=== PATIENT | female | born 1995 | race Caucasian/White ===

== ENCOUNTER 2021-02-12 14:14 | Inpatient (IN) | payer OTHER ==
[~2021-02-12] VITALS: Ht 165.1 cm; Wt 92.2 kg
[2021-02-12 14:44] VITALS: BP 140/84
[2021-02-12 16:05] VITALS: BP 117/81
[2021-02-12] MEDS ORDERED: TRANEXAMIC ACID INJection 1,000 MG in NS 100 ML IV PRN (16:10)
[2021-02-12] MEDS ORDERED: METHYLERGONOVINE MALEATE 0.2 MG/ML VIAL (J2210) IM PRN (16:10)
[2021-02-12] MEDS ORDERED: OXYTOCIN DRIP 30 UNITS in IV 1 EA IV PRN (16:10)
--- NOTE | 2021-02-12 16:26 | HPEPDOC ---
Obstetrical History & Physical General Date of Admission History of Present Illness 25 yo at 40+5 weeks gestation by LMP of [id number] c/w 10+1 week US present to L&D due to having a non reactive NST in the clinic. Nataliya reported not feeling the baby move very much. She was placed on the monitor and the NST was non reactive. She was sent to L&D. She reports intermittent contractions but nothing severe. She denies any vaginal bleeding or leakage of fluid. Chief Complaint: Induction of labor Information Provided By: Patient Age: 25 : 1 Term: 0 Pre-term: 0 Abortions: 0 Livin Care Care: Good Care Dating Final EDC: Feb 12, 2021 Final EDC for Daily Update: Feb 12, 2021 Final EDC by: LMP (LMP of [id number] c/w 10+1 week US set ED of [id number]) Antepartum Course Diagnos(e)s Transfer of care at 35 weeks ---> records available Past Medical History Past Obstetrical History : Past Obstetrical History: Primgravida DOCUMENTATION ANALYST History: No pertinent history Past Medical History Medical History Denies Surgical History: Appendectomy Family History Significant Family History: No pertinent family hx Social History Marital Status: Family situation: Spouse/partner home Psychosocial History: No pertinent psych hx * Smoker: non-smoker Alcohol: Denies Drugs: denies Imunizations Tdap status: current Influenza Status: current Physical Examination Physical Examination GENERAL: Alert and oriented times three. ABDOMEN: Gravid and non-tender to touch. FETUS: Is vertex (VTX) by sterile vaginal examination (SVE) EXTREMITIES: No edema. Bedside TAUS ( anatomy not assessed): Viable SIUP in cephalic presentation. +FCA measured at 125 bpm. +gross movement. JAYANT 9.8 cm. Vital Signs/I&O Vital Signs Date Time Temp Pulse Resp B/P (MAP) Pulse Ox O2 Delivery O2 Flow Rate FiO2 02/12/21 14:44 97.3 120 16 140/84 (102) Room Air Pertinent Laboratoy Data Blood Type: O+ RBC Antibody Screen: Negative HIV: Negative Hepatitis B: Negative Hepatitis C: Unknown Rapid Plasma Reagin: Nonreactive Rubella: Immune Varicella: Immune Chlamydia/Gonorrhea: Negative Group B Streptococcus: Negative Cystic Fibrosis: Negative Glucose Tolerance Test: 116 Anatomy Ultrasound Placenta Location: Anterior Normal Anatomy: Yes Placenta Previa: No Vaginal Examination Dilation: 2cm Effacement: 50% Station: -3 Cervical Consistency: Medium Cervical Position: Middle Presentation: Cephalic presentation Position: Vertex (occiput) Assessment Heart Rate (FHR): 125 Variability: Moderate Accelerations: Positive Decelerations: None Tocometer Contractions: Yes Frequency: irregular Assessment/Plan Assessment 25 yo at 40+5 weeks gestation presents to L&D for an IOL due to a non reactive NST in the office. Plan Admit for IOL. Labs per L&D protocol. Apply IV fluids. GBS negative. Regular diet. Discussed cook balloon, cytotec, and pitocin. Patient candidate for IV analgesia and/or epidural analgesia as desired. Anticipate . Labor and Delivery Counseling Vaginal / Operative vaginal delivery / C section counseling We will deliver your baby through the vagina with possible assistance of forceps or vacuum device if needed for maternal or indications. Forceps and vacuum are devices that can assist with vaginal delivery when normal pushing efforts cannot achieve delivery on their own or when delivery is needed in an emergency for baby's well-being. Medications may be required to induce or augment (help) your labor in order to achieve a vaginal delivery. An episiotomy may be required to help your baby to delivery vaginally. You may also require repair of any lacerations or tears of your vagina or vulva that are caused by delivery. In some cases, emergencies can occur that require an emergency section delivery so quickly that there may not be enough time to stop and complete consent forms for section. Understand that if this occurs, your providers will discuss the need for a section with you before they proceed with surgery. section is the delivery of your baby through an incision in your abdomen. In some situations, section may be safer to mom and baby than continuing labor and is only performed when clinically in dicated. Risks of vaginal delivery include but are not limited to: Bleeding, infection, injury to the vagina, pelvic structures, injury to baby, damage to the uterus, reactions to anesthesia, uterine rupture, risk of hysterectomy for life threatening bleeding, or . Medications used to induce or augment labor may increase your risk for infection, uterine tachysystole, uterine rupture, heart rate abnormalities, need for emergency delivery or possible hysterectomy, and hemorrhage. Additional risks for use of forceps and vacuum include: increased risk of perineal and vaginal lacerations, risk of urinary or bowel incontinence, increased risk of injury to baby with bruising, scratches, hematomas on the head, or intracranial bleeding. Ms. Terrazas appears to understand these risks and elects to proceed with IOL today. She also consents to a blood transfusion if necessary. All patient and questions answered. Lawrence Lamb DO, LAWRENCE ESPINAL. Feb 12, 2021 16:26
[2021-02-12 17:35] LABS: HEMATOCRIT 35.3 % (36.0-47.0); HEMOGLOBIN 12.1 g/dl (12.0-15.5); MEAN CORPUSCULAR HGB CONC 34.3 g/dl (32.0-36.5); MEAN CORPUSCULAR VOLUME 87.6 fl (80.0-96.0); PLATELET COUNT, AUTOMATED 244 10^3/uL (150-450); RED BLOOD COUNT 4.03 10^6/uL (4.00-5.40); WHITE BLOOD COUNT 14.8 10^3/uL (4.0-10.0)
[2021-02-12 18:28] VITALS: BP 132/80
[2021-02-12] MEDS ORDERED: TUMS0.15 PO (19:00)
[2021-02-12] MEDS ORDERED: PRENTAB9 PO (19:00)
[2021-02-12] MEDS ORDERED: HOME MED LIST COMPLETE! XX SCH (19:10)
--- NOTE | 2021-02-12 19:47 | IPNPDOC ---
Text Note Date of Service The patient was seen on 02/12/21. NOTE Chaperoned by RN Cervix: 50/-3, posterior. Cook balloon placed with 60ml saline intrauterine. FHR has been Cat I. Contractions intermittent. Will add concurrent low dose pitocin. All patient questions answered. Adonis VS,Torsten, I+O VS, Torsten, I+O Laboratory Tests 02/12/21 16:10 Vital Signs Date Time Temp Pulse Resp B/P (MAP) Pulse Ox O2 Delivery O2 Flow Rate FiO2 02/12/21 18:28 81 16 132/80 (97) 02/12/21 14:44 97.3 Room Air DARLIN CARTER DO Feb 12, 2021 19:47
[2021-02-12 19:48] VITALS: BP 140/87
[2021-02-12 20:00] LABS: TOTAL PROTEIN,RANDOM URINE 9.2 MG/DL (0.0-12.0)
[2021-02-12 21:24] VITALS: BP 140/91
[2021-02-12] MEDS ORDERED: PROMETHAZINE INJ 25 MG/ML VIAL (J2550) IV PRN (22:35)
[2021-02-12] MEDS ORDERED: BUTORPHANOL 2 MG/ML INJ (J0595) IV PRN (22:35)
[2021-02-12 23:00] VITALS: BP 136/71
[2021-02-12] MEDS ORDERED: OXYTOCIN DRIP 30 UNITS in IV 1 EA IV SCH (23:40)
[2021-02-13] VITALS (53 sets, daily range): BP systolic 108–162; BP diastolic 57–93
[2021-02-13] MEDS: LR 1,000 ML IV SCH ×4 (00:32→14:26)
[2021-02-13] MEDS: ONDANSETRON 4MG/2ML VIAL IV PRN ×2 (07:20→14:53)
--- NOTE | 2021-02-13 08:21 | IPNPDOC ---
Obstetrical Progress Note Date of Service Feb 13, 2021 Subjective Pt states feeling better with walking and moving, states back and hip pain with contractions. Objective Vital Signs Date Time Temp Pulse Resp B/P (MAP) Pulse Ox O2 Delivery O2 Flow Rate FiO2 02/13/21 06:39 98.9 113 18 132/82 (99) 02/12/21 14:44 Room Air Assessment Heart Rate (FHR): 125 Variability: Moderate Accelerations: Positive Decelerations: None Heart Rate Tracing: Category I Tocometer Contractions: Yes Frequency: regular (q2-3 min on 10mu pitocin) Duration: greater than 60 seconds Strength: palpated as moderate, resting tone palp/soft Assessment and Plan Age: 25 : 1 EGA at Admission: 40 (+5) Weeks & Days 40+6 Status: Reassuring Group B Streptococcus: Negative Anticipate: Vaginal Delivery Additional Comments LR @125 mL/hr, continuous efm x2, continue pitocin induction and titrate per protocol, monitor for change in or maternal status, encourage maternal movement and counter pressure for low back pain, evaluate for dilation as indicated and consider AROM with next exam, anticipate vaginal delivery. CONNOR DANG CNM Feb 13, 2021 08:20
[2021-02-13] MEDS ORDERED: ePHEDrine SULFATE 25 MG/5 ML(5MG/ML) SYRINGE IV PRN (10:22)
[2021-02-13] MEDS ORDERED: EPIDURAL COMMENT XX SCH (10:22)
[2021-02-13] MEDS ORDERED: EPIDURAL/PCA KEYS XX PRN (10:22)
[2021-02-13] MEDS ORDERED: ONDANSETRON 4MG/2ML VIAL IV PRN (10:22)
[2021-02-13] MEDS ORDERED: NALOXONE INJ 0.4MG/1ML VIAL (J2310 PER 1MG) IV PRN (10:22)
[2021-02-13] MEDS ORDERED: diphenhydrAMINE 50MG/ML VIAL (J1200) IV PRN (10:22)
[2021-02-13] MEDS ORDERED: LACTATED RINGER'S 1000 ML IV PRN (10:22)
[2021-02-13] MEDS ORDERED: REFRIGERATOR IV KEYS XX PRN (10:22)
[2021-02-13] MEDS ORDERED: FENTANYL 2MCG/ML ROPIVACAINE 0.2% IN 0.9% NACL 100ML IVBAG As Ordered ONE (10:24)
[2021-02-13] MEDS: FENTANYL/ROPIVACAINE/NACL BAG 100 ML EPIDURAL SCH ×2 (11:02→16:40)
--- NOTE | 2021-02-13 13:47 | IPNPDOC ---
Obstetrical Progress Note Date of Service Feb 13, 2021 Subjective Pt c/o more frequent intermittent pressure Objective Vital Signs Date Time Temp Pulse Resp B/P (MAP) Pulse Ox O2 Delivery O2 Flow Rate FiO2 02/13/21 11:24 87 16 113/62 (79) 02/13/21 11:00 98.1 02/12/21 14:44 Room Air Assessment Heart Rate (FHR): 120 Variability: Moderate Accelerations: Positive Decelerations: None Heart Rate Tracing: Category I Tocometer Contractions: Yes Frequency: every 1-3 min. Duration: greater than 60 seconds Strength: palpated as moderate, resting tone palp/soft Sterile Vaginal Examination Dilation: 7 cm (AROM with exam, meconium stained fluid noted) Effacement (%): 90% Station: -2 Cervical Consistency: Soft Cervical Position: Middle Postion/Presentation: Cephalic presentation Assessment and Plan Age: 25 : 1 Term: 0 Pre-term: 0 Abortions: 0 Livin EGA at Admission: 40 (+6) Status: Reassuring Group B Streptococcus: Negative Anticipate: Vaginal Delivery Additional Comments LR @125mL/hr, continue pitocin induction and titrate per protocol, continuous efm x2, monitor for change in or maternal status, encourage frequent mat ernal repositioning, anticipate vaginal delivery. CONNOR DANG CNM Feb 13, 2021 13:47
--- NOTE | 2021-02-13 17:13 | IPNPDOC ---
Obstetrical Progress Note Date of Service Feb 13, 2021 Subjective to room for assessment. patient is starting to feel pressure with contractions FHT: 120, MoD FELIBERTO, +Accels, -decel--CAT I tracing [place]: -07/23 sve: c/c/+2. a/p Complete. will start pushing when nursing is ready. anticipate . Objective Vital Signs Date Time Temp Pulse Resp B/P (MAP) Pulse Ox O2 Delivery O2 Flow Rate FiO2 02/13/21 15:33 96 18 123/63 (83) 02/13/21 14:55 98.9 02/12/21 14:44 Room Air IVY BERUMEN MD Feb 13, 2021 17:13
[2021-02-13] MEDS ORDERED: ACETAMINOPHEN 500 MG TAB PO PRN (18:00)
[2021-02-13] MEDS ORDERED: MOM 30ML SUSPENSION UDC PO PRN (18:00)
[2021-02-13] MEDS ORDERED: IBUPROFEN 800 MG TAB PO PRN (18:00)
[2021-02-13] MEDS ORDERED: DIBUCAINE 1% OINTMENT 30GM TOP PRN (18:00)
[2021-02-13] MEDS ORDERED: ANUSOL HC CREAM 30GM TOP PRN (18:00)
[2021-02-13] MEDS ORDERED: MEASLES,MUMPS,RUBELLA VACCINE INJ (MMR-II) (90707) SC SCH (18:00)
[2021-02-13] MEDS ORDERED: RHOGAM 300 MCG (1500 IU) INJ (J2790) IM SCH (18:00)
[2021-02-13] MEDS: DOCUSATE SODIUM 100MG CAPSULE PO SCH (22:22)
[2021-02-14 05:49] VITALS: BP 119/68
[2021-02-14 07:00] VITALS: BP 115/69
--- NOTE | 2021-02-14 07:27 | IPNPDOC ---
Progress Note Date of Service: Feb 14, 2021 Day#: 1 Progress Note SUBJECT: 25 yo PPD1 S/P at term of a 3540g female with apgars of 9/9.... going well this morning. She has been ambulating, voiding spontaneously without issue and tolerating regular diet. Breast feeding without issue. Reports lochia is minimal . Patient is ambulating well. OBJECTIVE: VITAL SIGNS: Within normal limits, afebrile. Alert and oriented times three. normal work of breathing. Heart rate: Regular rate and rhythm, . Abdomen: Fundus firm at U-2. Soft, NTTP. ASSESSMENT: as above. Vitals within normal limits, afebrile, hemodynamically stable with no evidence of infection. PLAN: 1. Discharge to home tomorrow 2. Tylenol and Motrin for pain. 3. Encourage breast feeding and ambulation. 4. barrier for contraception 5. Routine PP visit in 6 weeks in clinic. 6. Discussed return precautions at length. VS, I&O, 24H, Fishbone Vital Signs/I&O Vital Signs Date Time Temp Pulse Resp B/P (MAP) Pulse Ox O2 Delivery O2 Flow Rate FiO2 02/14/21 05:49 98.1 82 18 119/68 (85) 02/12/21 14:44 Room Air I&O- Last 24 Hours up to 6 AM 02/14/21 06:00 Intake Total 5137 ml Output Total 2950 ml Balance 2187 ml IVY BERUMEN MD Feb 14, 2021 06:06
[2021-02-14] MEDS: PRENATAL VITAMINS CHEWABLE TABLET PO SCH (09:10)
[2021-02-14] MEDS: DOCUSATE SODIUM 100MG CAPSULE PO SCH ×2 (09:10→20:33)
[2021-02-14] MEDS ORDERED: VITAD400CA FT (11:07)
[2021-02-14] MEDS ORDERED: FERR325T3 PO (11:07)
[2021-02-14] MEDS ORDERED: HOME MED LIST COMPLETE! XX SCH (11:10)
[2021-02-14] MEDS ORDERED: TUMS0.15 PO (12:34)
[2021-02-14 18:08] VITALS: BP 114/67
--- NOTE | 2021-02-15 05:11 | IPNPDOC ---
Progress Note Date of Service: Feb 15, 2021 Day#: 2 Progress Note SUBJECT: 25 yo PPD1 S/P at term of a 3540g female with apgars of 9/9; doing well this morning. She has been ambulating, voiding spontaneously without issue and tolerating regular diet. Breast feeding without issue. Reports lochia is minimal . Patient is ambulating well. OBJECTIVE: VITAL SIGNS: Within normal limits, afebrile. Alert and oriented times three. normal work of breathing. Heart rate: Regular rate and rhythm, . Abdomen: Fundus firm at U-2. Soft, NTTP. Negative calf tenderness bilaterally ASSESSMENT: as above. Vitals within normal limits, afebrile, hemodynamically stable with no evidence of infection. PLAN: 1. Discharge to home today 2. Tylenol and Motrin for pain. 3. Encourage breast feeding and ambulation. 4. barrier for contraception 5. Routine PP visit in 6 weeks in clinic. 6. Discussed return precautions at length. VS, I&O, 24H, Fishbone Vital Signs/I&O Vital Signs Date Time Temp Pulse Resp B/P (MAP) Pulse Ox O2 Delivery O2 Flow Rate FiO2 02/14/21 18:08 98.5 69 18 114/67 (83) 02/12/21 14:44 Room Air MORGAN BURGOS DO Feb 15, 2021 05:11
--- NOTE | 2021-02-15 05:14 | OBDS ---
[facility] Obstetrical Discharge Sum. Obstetrical Discharge Summary Mason Helper/Provider: MORGAN BURGOS DO Date: Feb 15, 2021 Time: 05:11 : 1 Term: 1 Pre-term: 0 Abortions: 0 Livin VDRL: Non-Reactive Rh: Positive Rubella: Immune Labor uncomplicated Delivery normal spontaneous vaginal delivery Infant Sex: Female Infant Weight: pounds (7), ounces (13), grams (3540) Anesthesia: Regional Anesthesia A/P, Post Course List any complications Admission diagnosis: labor at term. Discharge diagnosis: status post normal spontaneous vaginal delivery Condition at Discharge: Good Discharge Instructions: Home Activity: vaginal rest, otherwise as tolerated Diet: resume pre-hospital diet Medications: at [place] Follow-up: 6 weeks [place] PRICE Other: MORGAN BURGOS DO Feb 15, 2021 05:14
[2021-02-15] MEDS ORDERED: IBUP80TA PO (05:17)
[2021-02-15] MEDS ORDERED: ACET-683 PO (05:17)
[2021-02-15] MEDS ORDERED: COLA100C5 PO (05:17)
[2021-02-15 06:17] VITALS: BP 130/73
[2021-02-15] MEDS: DOCUSATE SODIUM 100MG CAPSULE PO SCH (08:47)
[2021-02-15] MEDS: PRENATAL VITAMINS CHEWABLE TABLET PO SCH (08:47)
--- NOTE | 2021-03-18 08:30 | DNPDOC ---
[facility] Delivery Note Delivery Note DATE OF DELIVERY: 02/13/2021 PREDELIVERY DIAGNOSIS: 40-/7 weeks' gestation and labor. POST DELIVERY DIAGNOSIS: Delivered. PROCEDURE: [Spontaneous vaginal delivery/ section]. LAY OUT INSPECTOR: [place] Dean MD ANESTHESIA: Epidural ESTIMATED BLOOD LOSS: 100 mL. FINDINGS:3540g female , Score 9/9, nuchal cord times 1. DELIVERY SUMMARY: 25 yo PPD0 S/P at term. She progressed to C/C/+2 and with good maternal effort delivered a viable . The infants head delivered OA and the head was allowed to spontaneous ly restitute CARLINE. loose nuchal cord noted and delivered through. anterior shoulders delivered with gentle downward traction followed by posterior shoulder and corpus without difficulty. Normal 3-vessel cord clamped x 2 and cut by FOB after 1 minute of delayed cord clamping. Spontaneous cry noted. placed on maternal abdomen for [id number] Cord blood obtained. Placenta delivered spontaneously and inspection of the placenta demonstrated that it was intact. The cord insertion appeared normal. The uterus was cleared of all clots and debris. Fundal massage until firm. 30 units of Pitocin administered per protocol and the patient required no additional uterotonics. Inspection of cervix, perineum, and vaginal wall revealed small labia abrasion that was hemostatic with pressure application. . Repeat uterine examination noted uterine tone to be adequate and firm. Mom and infant stayed in L&D in hemodynamic stable condition upon my departure. Sponge, lap and needle count correct x 2. [place] OBGYParvin Staff IVY BERUMEN MD Feb 13, 2021 18:03
== END 2021-02-15 10:17 | disposition home or self-care (01) | DRG 807 ==
LOC: M LDO 14:14 → M LDI 16:17 → M OBS 02-13 20:21
PROVIDERS: ADMIT Obstetrics & Gynecology; ATTEND Obstetrics & Gynecology
PROC: 3E033VJ Introduction of Other Hormone into Peripheral Vein, Percutaneous Approach (ICD-10-PCS; 2021-02-12)
PROC: 10E0XZZ Delivery of Products of Conception, External Approach (ICD-10-PCS; principal; 2021-02-13)
PROC: 10907ZC Drainage of Amniotic Fluid, Therapeutic from Products of Conception, Via Natural or Artificial Opening (ICD-10-PCS; 2021-02-13)
DX: O48.0 Post-term pregnancy (principal); Z37.0 Single live birth; Z3A.40 40 weeks gestation of pregnancy; O77.0 Labor and delivery complicated by meconium in amniotic fluid; O69.81X0 Labor and delivery complicated by cord around neck, without compression, not applicable or unspecified

== ENCOUNTER → 2021-06-21 | Outpatient (CLI) | payer OTHER ==
[~2021-06-21] MED LIST: ACET-683 PO; COLA100C5 PO; FERR325T3 PO; IBUP80TA PO; PRENTAB9 PO; TUMS0.15 PO; VITAD400CA FT
== END ==
LOC: M LAB 11:41
PROVIDERS: ATTEND Physician Assistant
DX: R76.12 Nonspecific reaction to cell mediated immunity measurement of gamma interferon antigen response without active tuberculosis (principal)